=== PATIENT | male | born 1945 | race Caucasian/White ===

== ENCOUNTER 2024-02-20 22:32 | Observation (INO) | payer MEDICARE, OTHER, SELFPAY ==
[2024-02-20 18:35] VITALS: BP 169/76; BMI 31.6
--- NOTE | 2024-02-20 19:02 | ED.GENMED ---
History of Present Illness
General
Chief Complaint: Weakness
Source: patient and ambulance crew
Exam Limitations: none
Time Seen by Provider: 02/20/24 18:31
Nursing documentation reviewed up to this point in time: agreed with
History of Present Illness
History of Present Illness:
Pleasant 78-year-old male presents with weakness. He has a history of Parkinson's and reports becoming weak today. He was diagnosed with UTI recently and started on an antibiotic. He is unsure of the name. Patient has a history of diabetes,
Parkinson's, hypertension, hyperlipidemia. Denies fever, chills, nausea or vomiting. He does report acute on chronic lower leg paresthesias. He does have a history of lower leg edema and peripheral vascular disease.
Past History
Past History
ED Past Medical History: NIDDM, Other (glaucoma, Parkinson's disease, kidney stones) and Other (Osteoarthritis)
ED Past Surgical History: Other (skin graft)
Social History
Tobacco: Former smoker
Alcohol: Occasional (rare)
Drug: None
Personal:
Living: with family
Employment: Retired
Family History
Family History: Other (Noncontributory)
Review of Systems
Review of Systems
Allergies reviewed?: Yes
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
All Other Systems: ROS reviewed and negative except as documented in HPI and ROS
Constitutional: Reports fatigue
EENT: Reports no symptoms
Respiratory: Reports no symptoms
Cardiac: Reports no symptoms
ABD/GI: Reports no symptoms
: Reports no symptoms
Musculoskeletal: Reports no symptoms
Skin: Reports no symptoms
Neurological: Reports no symptoms
Endocrine: Reports no symptoms
Hematologic/Lymphatic: Reports no symptoms
Psychiatric: Reports anxiety
Phy Exam
General Physical Exam
General Presentation: well appearing and mild distress
General age: appears older than age
General Skin: dry
General Habitus: debilitated and elderly
General Mental: alert and anxious
General Hydration: appears well hydrated
ENT Exam
ENT Exam: EOMI, pharynx normal, neck supple and normocephalic
Eye Exam
Eye Exam: PERRL, cornea clear and conjunctiva normal
Cardiovascular Exam
Cardiovascular Exam: regular rate/rhythm
Pulmonary Exam
Pulmonary Exam: lungs clear, no respiratory distress, no rales, no crackles, no rhonchi, no stridor, no wheezing and no cough
Gastrointestinal Exam
Gastrointestinal Exam: normal bowel sounds, non tender, soft, no organomegaly, no pulsatile mass and non distended
Neurological Exam
Neurological Exam: alert, oriented x3, no motor deficits and speech normal
Musculoskeletal Exam
Musculoskeletal Exam: edema (Bilateral lower extremity edema) and neuro vasc intact
Skin Exam
Skin Exam: normal color, warm/dry, no rash and no petechia
Psychiatric Exam
Psychiatric Exam: normal mood/affect and labile
Course
Orders/Labs/Results
Orders:
Orders
02/20/24 18:57
Complete Blood Count/With Diff Urgent
Comprehensive Metabolic Panel Urgent
Lactate Level [Lactic Acid] Urgent
02/20/24 20:21
Urinalysis Reflex To Culture Urgent
Date Specimen was Collected: 02/20/24
Time Specimen was Collected: 20:17
02/20/24 22:04
Admit/Transfer Patient As Directed
Co-Sign Provider:
Level of Care: Observation services
Assign to:: Medical/Surgical
Physician / Group: Mae
Diagnosis: generalized weakness
02/20/24 22:07
Code Status As Directed
Resuscitation Status: Full Code
02/20/24 22:17
Chest X-ray Portable [CR Chest Portable - 1 View] Routine
Comment:
Reason For Exam: Ambulatory dysfunction
Reason Study Needs to be Portable: Other
If Reason is Other, explain: Ambulatory dysfunction
02/20/24 22:21
Orthostatic Vital Signs As Directed
Orthostatic VS Frequency: BID
Ot Eval And Treat Routine
Pt Eval And Treat Routine
Activity Level: Out of Bed-Early Mobility
Speech Therapy Eval & Treat Routine
02/21/24 06:00
Lactic Acid IN AM
Abnormal Lab Results
02/20/24 02/20/24
18:57 20:21
Absolute Lymphs (auto) 1.1 L 10^3/uL
(1.2-3.4)
Lymphocytes % 15.2 L %
(20.5-51.1)
BUN 31 H mg/dl
(9-20)
Glucose 142 H mg/dl
(70-99)
Lactic Acid 2.9 H mmol/L
(0.7-2.0)
Alkaline Phosphatase 129 H U/L
(38-126)
Urine Ketones Trace A
(Negative)
02/20/24 18:57
02/20/24 18:57
Vital Signs
Initial and Last Documented VS:
Initial Vital Signs
Temp Pulse Resp BP Pulse Ox
98.3 F 73 16 169/76 98
02/20/24 18:35 02/20/24 18:35 02/20/24 18:35 02/20/24 18:35 02/20/24 18:35
Last Documented Vital Signs
Temp Pulse Resp BP Pulse Ox
97.7 F 69 20 142/76 98
02/20/24 19:24 02/20/24 21:53 02/20/24 21:53 02/20/24 21:53 02/20/24 21:53
*Critical Care Note
Total Time (30-74mins, 75-104mins- exclusive of procedures): Not Applicable
Update Note
Update Note:
02/20/20242126 PM: Patient was able to urinate and tolerate 8 ounces of fluids. Lab work shows that he is slightly dehydrated but he is drinking adequately. Family wishes to take him home. Patient to be discharged
ED Attending Note
-
Portions of this chart may have been created with voice recognition software.� Occasional wrong word or��sound alike� substitutions may have occurred due to the inherent limitations of voice recognition software.
Discharge Plan
Departure
Patient Disposition: Admit
Date of Disposition: 02/20/24
Time of Disposition: 21:39
Admit to: Med/Surg
Presentation/result/management discussed w/ accepting MD/DO: Hospitalist
Condition: Good
Discharge Problem:
Weakness, Parkinson's disease, Dehydration
Interventions
Interventions:
*Risk Screen - Suicide Last Done: 02/20/24 19:24
*General Assessment Last Done: 02/20/24 19:24
*Neglect/Abuse Screening Last Done: 02/20/24 19:24
ED- Fall Risk Assessment Last Done: 02/20/24 19:24
*ED COVID-19 Vaccine History Last Done: 02/20/24 19:24
ED- Cardiac Assessment Last Done: 02/20/24 19:24
ED- Neurological Assessment Last Done: 02/20/24 19:24
ED- Pulmonary Assessment Last Done: 02/20/24 19:24
[2024-02-20 19:05] LABS: % Basophils 0.7 % (0-2); % Eosinophils 5.7 % (0-6); % Immature Granulocytes 0.3 % (0-0.5); % Lymphocytes 15.2 % (20.5-51.1); % Neutrophils 70.1 % (42.2-75.2); Absolute Basophils 0.1 10^3/uL (0-0.2); Absolute Eosinophils 0.4 10^3/uL (0-0.7); Absolute Lymphocytes 1.1 10^3/uL (1.2-3.4); Absolute Monocytes 0.6 10^3/uL (0.1-0.6); Absolute Neutrophils 5.2 10^3/uL (1.4-6.5); Hematocrit 41.8 % (39.0-52.0); Hemoglobin 14.3 g/dL (13.0-18.0); Mean Corp Hgb Conc. 34.2 g/dL (33.0-37.0); Mean Corpuscular Hgb 29.5 pg (27.0-31.0); Mean Corpuscular Volume 86.4 fL (80.0-94.0); Mean Platelet Volume 10.1 fL (7.4-10.4); Nucleated Red Blood Cells % 0 % (-); Platelet Count 157 10^3/uL (130-400); Red Blood Cell Count 4.84 10^6/uL (4.70-6.10); Red Cell Dist. Width 13.1 % (11.5-14.5); White Blood Cell Count 7.4 10^3/uL (4.8-10.8)
[2024-02-20 19:18] LABS: Lactic Acid 2.9 mmol/L (0.7-2.0)
[2024-02-20 19:21] LABS: ALT (SGPT) 11 U/L (0-50); AST (SGOT) 20 U/L (17-59); Albumin 4.4 g/dl (3.5-5.0); Alkaline Phosphatase 129 U/L (38-126); Blood Urea Nitrogen 31 mg/dl (9-20); Calcium 9.9 mg/dl (8.4-10.2); Carbon Dioxide 23 mmol/L (22-30); Chloride 107 mmol/L (98-107); Estimated Creatinine Clearance 71 ml/min; Glucose 142 mg/dl (70-99); Potassium 4.6 mmol/L (3.5-5.1); Sodium 140 mmol/L (135-145); Total Bilirubin 0.8 mg/dl (0.2-1.3); eGFR > 60.00
[2024-02-20 19:24] VITALS: BP 142/59
[2024-02-20 20:23] VITALS: BP 138/83
[2024-02-20 20:26] LABS: Urine Albumin Negative (Neg - Trace); Urine Bilirubin Negative (Negative); Urine Character Clear (Clear); Urine Color Yellow; Urine Glucose Negative (Negative); Urine Ketone Trace (Negative); Urine Leukocyte Negative (Negative); Urine Nitrite Negative (Negative); Urine Occult Blood Negative (Negative); Urine Specific Gravity 1.015 (<1.030); Urine Urobilinogen Negative (Neg - 1+)
[2024-02-20 21:53] VITALS: BP 142/76
--- NOTE | 2024-02-20 22:12 | HPS.HSE ---
Family Physician
-
Family Physician: Ham Sheldon
Chief Complaint
-
Generalized weakness
History of Present Illness
78-year-old male who accompanied by the and son at bedside with known history of Parkinson disease, diabetes, chronic lower extremity especially leg weakness and recent diagnosed with UTI and been treated with 12-day nitrofurantoin by primary
care still have a couple of pills left, brought to the hospital as family noticed in the last couple of days progressively getting more weaker and not eating and drinking especially not drinking much generally and worse last couple of days, he will
ambulate with a walker if not uses a wheelchair.
Denies any nausea or vomiting, admit poor appetite and no fever or chill or cough or congestion, no chest pain, no syncope or palpitation or any dizziness.
provided most of the information according to the he is barely drinks anything in general worse last couple of days.
No sick contacts or recent travel.
No diarrhea, moves his bowels according to the patient daily if not every other day.
Urinalysis in the ER showed trace ketones otherwise no evidence of infection, lactic acid is 2.9 BUN is 31, there is no leukocytosis or fever, he is able to provide most information but speaks in multiple voice and not in distress.
Medical History
Past Medical History
Past Medical History: Reports Other
Additional Past Medical History:
Past medical history archive reviewed:
Parkinson disease
Ambulatory dysfunction
Chronic lower extremity weakness and numbness mostly in the left
Hypertension
Social history: Lives at home with and family, no smoking or alcohol use, ambulates with a walker and wheelchair.
Family history: Reviewed and noncontributory
Past Surgical History: Reports Other
Social History
Unable to obtain full social history at this time due to: Other
Family History
Family History: Other
Allergies / Home Medications
Allergies reflects when Allergies were last updated in [employer].
Home Medications with original date entered in [employer]
Allergy/Medication List:
Allergies
Allergy/AdvReac Type Severity Reaction Status Date / Time
Penicillins Allergy Intermediate Rash Verified 06/25/22 06:51
' all antibiotics' Allergy Pharmacy Uncoded 05/24/23 11:23
to Review
Home Medications
metformin 500 mg tablet 500 mg PO DAILY diabetes 12/25/16
carbidopa ER 50 mg-levodopa 200 mg tablet,extended release 0.5 tab PO DAILY@1200 parkinsons disease 06/23/22
carbidopa ER 50 mg-levodopa 200 mg tablet,extended release 1 tab PO TID parkinsons disease 06/23/22
pramipexole 1 mg tablet 1 mg PO TID parkinsons disease 06/23/22
simvastatin 10 mg tablet 10 mg PO HS High Cholesterol 06/23/22
zonisamide 50 mg capsule 150 mg PO HS Neurological Condition 06/23/22
aspirin 81 mg tablet,delayed release 81 mg PO HS Blood Clot Prevention/Tx 05/24/23
enalapril maleate 10 mg tablet 5 mg PO HS Blood Pressure 05/24/23
cefdinir 300 mg capsule 300 mg PO BID #16 caps 05/28/23
Review of Systems
-
A 12 point ROS was completed and negative except as noted: Yes
Physical Exam
Vital Signs
Vital Signs
Temp Pulse Resp BP Pulse Ox
97.7 F 69 20 142/76 98
02/20/24 19:24 02/20/24 21:53 02/20/24 21:53 02/20/24 21:53 02/20/24 21:53
Physical exam:
General: Awake, alert and oriented x3, speaks in low tone of voice, not in distress and holds appropriate conversation.
HEENT: No active discharge, ecchymosis or bruising, dry lips, tongue and mucous membrane.
Eyes: No discharge or red conjunctiva, no nystagmus, pupils are reactive and equal
Neck:Supple, no JVD no bruit no goiter.
Respiratory: Normal AP contour and diameter, normal chest wall movement, normal respiratory effort, no respiratory distress,
Lungs: Good air entry bilaterally, no wheezing or rhonchi, no rales or crackles
Heart: S1, S2 regular, normal rate, no added sound. Mild to moderate bilateral lower extremities edema,
Gastrointestinal: Positive bowel sounds, soft, nontender, no guarding or rigidity or organomegaly
Musculoskeletal: , no chest wall abnormality or tenderness. All joints and extremities have good range of motion, no muscle tenderness or any joint swelling or tenderness.
Extremities: Skin demarcation bilateral lower extremities, no ulceration, good peripheral pulses, good range of motion
Skin: Warm and dry, no ulceration, normal color.
Neurological: Awake, alert and oriented x3, speaks low tone of voice, moves extremities well but slowly,, cranial nerve II-XII grossly intact, speech clear and comprehensive, good muscle tone, sensation intact in all extremities, motor in all
extremities. 4-5/5,
Psychiatric: Normal mood, normal thought and judgment, normal affect,
Physical Exam
General: Other
Laboratory Results
-
02/20/24 18:57
02/20/24 18:57
Laboratory Results
Lactic Acid 2.9 mmol/L (0.7-2.0) H 02/20/24 18:57
Total Bilirubin 0.8 mg/dl (0.2-1.3) 02/20/24 18:57
AST 20 U/L (17-59) 02/20/24 18:57
ALT 11 U/L (0-50) 02/20/24 18:57
Alkaline Phosphatase 129 U/L (38-126) H 02/20/24 18:57
Data Reviewed
-
Lab Data: Labs Reviewed by me, Discussed with Patient and Discussed with Family
Old Records: Reviewed
Impression/Plan
-
IMPRESSION:
78-year-old male with a long history of Parkinson disease, ambulatory dysfunction, diabetes, was treated with nitrofurantoin for 12-day for urinary tract infection, brought to the hospital for generalized weakness and worsening ambulation. Likely
related to dehydration and worsening Parkinson syndrome may be a possibility, other causes may need to be considered but doubted stroke, also there is lactic acidosis.
Generalized weakness
Worsening ambulation
Dehydration
Lactic acidosis, so far is no evidence of infection but may be related to metformin
Elevated BUN, likely related to dehydration
Known history of Parkinson disease
Diabetes mellitus
Hypertension
Chronic lower extremity weakness and numbness
Recent UTI, urinalysis showed no evidence of UTI,
PLAN:
Will start normal saline at 80 mill per hour and he looks dry and dehydrated and according to the patient and the family he barely drinks anything,
Fall aspiration precaution
Get orthostatic vital sign
PT OT and assess functional status
Neurology consult for further evaluation and recommendation
get a blood culture and chest x-ray for now I will hold off any antibiotic as there is no indication including holding nitrofurantoin and need to prefer to follow-up to have a couple more pills left and urinalysis showed no evidence of UTI
Recheck lactic acid level hold metformin
Glucoscan.
Home medication reviewed with , on the list simvastatin is not included we will hold it.
zonisamide decreased to 100 at the bedside.
All discussed with the patient and the family in detail expressed understanding
CODE STATUS full code
DVT prophylaxis Lovenox
[2024-02-20 23:21] VITALS: BP 144/66
[2024-02-21 00:27] VITALS: BP 163/76; BMI 28.6
[2024-02-21] MEDS: VASOTEC 5 MG PO ×2 (01:30→22:04)
[2024-02-21] MEDS: LOW STRENGTH ASPIRIN 81 MG PO (01:30)
[2024-02-21] MEDS: ZONEGRAN 100 MG PO ×2 (01:30→22:02)
[2024-02-21] MEDS: SINEMET CR 50/200 (EXTENDED RELEASE) 1 TABLET PO ×4 (01:31→21:57)
[2024-02-21 01:41] LABS: Glucose - Point of Care 184 mg/dl (70-99)
[2024-02-21] MEDS: MIRAPEX, GENERIC 1 MG PO ×4 (01:42→21:58)
[2024-02-21] MEDS: NSS 1000 IV ×2 (01:43→13:06)
[2024-02-21 07:35] VITALS: BP 150/86; BP 161/81; PULSE 68
[2024-02-21 07:38] LABS: Glucose - Point of Care 106 mg/dl (70-99)
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
[2024-02-21] MEDS: NOVOLOG FLEXPEN-MODERATE RESISTANCE SC (09:15)
--- NOTE | 2024-02-21 09:37 | PTOTSP ---
Dysphagia Evaluation
Patient presents with signs concerning for WFL-mild oral/pharyngeal dysphagia (likely related to Parkinson's disease) without signs of complications (chest x-ray without PNA). He also presents with dysarthria/dysphonia due to Parkinson's disease.
Outpatient evaluation warranted.
Recommend:
1. Regular, Thin Liquids
2. Medications - 1 at a time with single sips of water and/or whole in puree as needed
3. Strategies: upright to 90 degrees, slow rate, small sips/bites
4. Oral care 3x daily
5. No further dysphagia tx warranted. Consider outpatient voice/motor speech evaluation.
[2024-02-21 11:09] LABS: Lactic Acid 2.2 mmol/L (0.7-2.0)
[2024-02-21 11:25] VITALS: BP 155/78; BP 170/82; BP 176/104; PULSE 65; O2SAT 97
[2024-02-21 11:27] VITALS: BP 155/78; BP 170/82; BP 176/104; PULSE 67; PULSE 68; O2SAT 98
[2024-02-21 11:41] LABS: Blood Urea Nitrogen 21 mg/dl (9-20); Calcium 9.5 mg/dl (8.4-10.2); Carbon Dioxide 21 mmol/L (22-30); Chloride 109 mmol/L (98-107); Estimated Creatinine Clearance 69 ml/min; Glucose 170 mg/dl (70-99); Magnesium 2.1 mg/dl (1.6-2.3); Potassium 4.6 mmol/L (3.5-5.1); Sodium 139 mmol/L (135-145); eGFR > 60.00
[2024-02-21 11:52] LABS: Glucose - Point of Care 150 mg/dl (70-99)
[2024-02-21 12:06] LABS: TSH 0.62 uIU/ml (0.47-4.68)
[2024-02-21 12:25] LABS: Vitamin B12 430 pg/ml (239-931)
[2024-02-21 12:26] LABS: % Basophils 0.8 % (0-2); % Eosinophils 5.6 % (0-6); % Immature Granulocytes 0.3 % (0-0.5); % Lymphocytes 12.9 % (20.5-51.1); % Monocytes 7.5 % (1.7-9.3); % Neutrophils 72.9 % (42.2-75.2); Absolute Basophils 0.1 10^3/uL (0-0.2); Absolute Eosinophils 0.4 10^3/uL (0-0.7); Absolute Lymphocytes 0.9 10^3/uL (1.2-3.4); Absolute Monocytes 0.5 10^3/uL (0.1-0.6); Absolute Neutrophils 5.2 10^3/uL (1.4-6.5); Hematocrit 38.7 % (39.0-52.0); Hemoglobin 13.5 g/dL (13.0-18.0); Mean Corp Hgb Conc. 34.9 g/dL (33.0-37.0); Mean Corpuscular Hgb 30.5 pg (27.0-31.0); Mean Corpuscular Volume 87.6 fL (80.0-94.0); Mean Platelet Volume 10.9 fL (7.4-10.4); Nucleated Red Blood Cells % 0 % (-); Platelet Count 145 10^3/uL (130-400); Red Blood Cell Count 4.42 10^6/uL (4.70-6.10); Red Cell Dist. Width 13.2 % (11.5-14.5); White Blood Cell Count 7.1 10^3/uL (4.8-10.8)
[2024-02-21] MEDS: SINEMET CR 50/200 (EXTENDED RELEASE) 0.5 TABLET PO (13:05)
[2024-02-21] MEDS: NOVOLOG FLEXPEN-MODERATE RESISTANCE 1 UNITS SC ×2 (13:07→18:11)
[2024-02-21 13:51] LABS: Glycohemoglobin (HgbA1c) 6.5 % (4.0-5.6)
--- NOTE | 2024-02-21 14:35 | W.PN.HOSP.TC ---
Today's Communication/Plan
-
Diabetes DIRECTOR OF TEACHING AND LEARNING consulted
Begin discharge planning to SNF
Assessment / Plan
Assessment / Plan
NAD, resting comfortably in bed, soft spoken
Scleral anicteric
Moist mucous membranes
No JVD
CTA bilateral
Normal S1-S2 no murmurs
Soft nontender nondistended bowel sounds active
No peripheral pitting edema
AAOx3
Parkinson's continue Sinemet and pramipexole. Evaluated by neurology did not recommend dose adjustment. Avoid antipsychotics.
-Recommend dedicated exercise program such as rock [place] boxing
-Evaluated by physical therapy recommended SNF. Family agreeable.
Lactic acid remains high at 2.2. Likely related to metformin use. Will need to hold this indefinitely.
-Without foci of infectious process noted
-Without evidence of acute allergic reaction
-Without history of alcohol use
Diabetes continue Accu-Cheks sliding scale goal blood glucose 140-180. Carb controlled diet. On discharge will likely need to be discharged with a sliding scale rather than metformin.
-Will have diabetes DIRECTOR OF TEACHING AND LEARNING evaluate
Anticipated Discharge: Within 24 hours
Subjective/Interval History
-
Date of Service: February 21, 2024
Seen and examined. No new complaints. No acute overnight events.
Objective Data
-
Labs:
Laboratory Results
02/21/24
10:28
WBC 7.1
Hgb 13.5
Hct 38.7 L
Plt Count 145
Sodium 139
Potassium 4.6
Chloride 109 H
Carbon Dioxide 21 L
BUN 21 H
Creatinine 0.8
Glucose 170 H
Calcium 9.5
Vital Signs:
Vital Signs
Temp Pulse Resp BP Pulse Ox
97.9 F 68 18 161/81 95
02/21/24 07:35 02/21/24 07:35 02/21/24 07:35 02/21/24 07:35 02/21/24 09:09
I&O
02/20/24 02/21/24 02/22/24
06:59 06:59 06:59
Intake Total 240 / 240
Output Total 100 / 100
Balance 140 / 140
[2024-02-21 15:22] VITALS: BP 136/64
--- NOTE | 2024-02-21 16:56 | PTCARENOTE ---
Pt AAO x3, speech soft. QUINTANILLA randomly; has involuntary movements of arms/legs at times. Assists with positioning. VSS. On room air- pulseox 94%, no SOB noted. Abd large, soft, charlene PO well, no dysphagia noted. Incont large amts urine. Resting in
bed at present, no c/o. Will continue to monitor.
[2024-02-21 16:57] LABS: Glucose - Point of Care 152 mg/dl (70-99)
[2024-02-21] MEDS: LOVENOX 40 MG SC (18:13)
[2024-02-21 20:07] LABS: Hepatitis C Antibody Negative (Negative)
[2024-02-21 21:11] LABS: Glucose - Point of Care 138 mg/dl (70-99)
[2024-02-21] MEDS: ASPIR LOW (ENTERIC COATED) 81 MG PO (21:57)
[2024-02-21 23:37] VITALS: BP 141/69
[2024-02-22] MEDS: NSS 1000 IV ×2 (01:33→14:14)
[2024-02-22 06:00] VITALS: BMI 28.6
[2024-02-22 07:30] VITALS: BP 158/77
[2024-02-22 07:42] LABS: Glucose - Point of Care 112 mg/dl (70-99)
--- NOTE | 2024-02-22 07:59 | PN.DE.MGMTRT ---
Insulin Management
- -
02/22/2024 Diabetes Management Consult
Patient admitted 02/19 due to weakness, dehydration, elevated lactic acid. PMH Parkinsons, recent UTI, HTN, diabetes, HLD. Prior to admission was taking 500 mg metformin daily. A1C 6.5 on admission, cr .8, eGFR > 60.
Patient is awake alert and oriented oob in chair. Son at bedside.
Patient has been on moderate corrective insulin requiring 1 unit with lunch and 1 unit with dinner for glucose 150. Fasting glucose this AM 112. Appetite is documented as excellent 100% of meals. Will make no change to corrective insulin only at
this time.
Would not restart metformin as A1C is 6.5%.
Diabetes History
- -
Type of Diabetes: 2
Pre-Admission Diabetes Regimen
02/21/24
10:28
Creatinine 0.8
Lab Results
Hemoglobin A1c 6.5 % (4.0-5.6) H 02/21/24 10:28
Insulin Pump Settings
IP Diabetes Regimen
02/21/24 02/21/24 02/21/24
10:28 11:50 16:56
Glucose 170 H
POC Glucose 150 H 152 H
02/21/24 02/22/24
21:10 07:40
Glucose
POC Glucose 138 H 112 H
Meal type: Dinner
Meal type: Lunch
Meal type: Breakfast
Amount consumed: 100%
Amount consumed: 100%
Amount consumed: 100%
Patient Education
--- NOTE | 2024-02-22 09:12 | W.PN.HOSP.TC ---
Today's Communication/Plan
-
begin dc planning to snf
family aware of plan as I provided them with an update yesterday over the phone
- they are agreeable to snf
- they were happy that neuro did not make any chnages to parkinsons agents.
Assessment / Plan
Assessment / Plan
NAD, resting comfortably in bed, soft spoken
Scleral anicteric
Moist mucous membranes
No JVD
CTA bilateral
Normal S1-S2 no murmurs
Soft nontender nondistended bowel sounds active
No peripheral pitting edema
AAOx3
Parkinson's continue Sinemet and pramipexole. Evaluated by neurology did not recommend dose adjustment. Avoid antipsychotics.
-Recommend dedicated exercise program such as rock [place] boxing
-Evaluated by physical therapy recommended SNF. Family agreeable.
Lactic acid remains high at 2.2. Likely related to metformin use. Will need to hold this indefinitely.
-Without foci of infectious process noted
-Without evidence of acute allergic reaction
-Without history of alcohol use
Diabetes continue Accu-Cheks sliding scale goal blood glucose 140-180. Carb controlled diet. On discharge will likely need to be discharged with a sliding scale rather than metformin.
-Will have diabetes POLICE CAPTAIN evaluate
Anticipated Discharge: Within 24 hours
Subjective/Interval History
-
Date of Service: February 22, 2024
seen and examined. no new complaints no acute overnight events
at bedside
updated and notified her that he is ready for dc to snf
Objective Data
-
Vital Signs:
Vital Signs
Temp Pulse Resp BP Pulse Ox
98.0 F 60 17 158/77 95
02/22/24 07:30 02/22/24 07:30 02/22/24 07:30 02/22/24 07:30 02/22/24 07:30
I&O
02/21/24 02/22/2402/22/24
06:59 06:59 06:59
Intake Total 240 / 240 2099 / 2099
Output Total 100 / 100 175 / 175
Balance 140 / 140 1924 / 1924
[2024-02-22] MEDS: NOVOLOG FLEXPEN-MODERATE RESISTANCE SC ×3 (09:13→16:53)
[2024-02-22] MEDS: MIRAPEX, GENERIC 1 MG PO ×2 (09:14→21:07)
[2024-02-22] MEDS: SINEMET CR 50/200 (EXTENDED RELEASE) 1 TABLET PO ×3 (09:14→21:07)
[2024-02-22 11:19] LABS: Glucose - Point of Care 143 mg/dl (70-99)
[2024-02-22] MEDS: SINEMET CR 50/200 (EXTENDED RELEASE) 0.5 TABLET PO (12:06)
[2024-02-22 15:19] VITALS: BP 140/62
[2024-02-22 16:06] VITALS: BP 160/79; PULSE 60; O2SAT 97
[2024-02-22 16:14] LABS: Glucose - Point of Care 115 mg/dl (70-99)
--- NOTE | 2024-02-22 16:33 | CM ---
CM met with Sophie, his , and son at bedside to discuss discharge to SNF. [facility] has a bed available and participates in the [employer] Waiver, so SNF will be covered. Pt and family agreeable to this plan.
SNF bed available tomorrow for transfer in the early afternoon.
CM to follow to facilitate transfer to [facility] when medically cleared. updated on plan.
Plan: Short term placement at [facility]
PCP: Ham Sheldon
Pharmacy: [facility] in [place]
[2024-02-22] MEDS: MIRAPEX, GENERIC PO (16:53)
[2024-02-22] MEDS: LOVENOX 40 MG SC (17:42)
[2024-02-22] MEDS: VASOTEC 5 MG PO (21:07)
[2024-02-22] MEDS: ASPIR LOW (ENTERIC COATED) 81 MG PO (21:08)
[2024-02-22] MEDS: ZONEGRAN 100 MG PO (21:08)
[2024-02-22 21:19] LABS: Glucose - Point of Care 143 mg/dl (70-99)
[2024-02-22 23:53] VITALS: BP 143/79
--- NOTE | 2024-02-23 03:02 | DOWNTIME ---
There was a [employer] Client Mechanical Engineering Technologist Downtime on 02/23/2024 from 0100 to 02/23/2024 at 0255. Downtime documentation of patient's care, including medication administrations, has been reconciled in the electronic record per guidelines. Refer to the
patient's paper chart under the miscellaneous tab to see printed paper medication records and downtime forms.
[2024-02-23] MEDS: NSS 1000 IV (05:33)
[2024-02-23 07:24] LABS: Glucose - Point of Care 115 mg/dl (70-99)
[2024-02-23 07:40] VITALS: BP 155/80
--- NOTE | 2024-02-23 08:09 | PN.DE.MGMTRT ---
Insulin Management
- -
02/23/2024 Diabetes Management Consult Follow up
Patient admitted 02/19 due to weakness, dehydration, elevated lactic acid. PMH Parkinsons, recent UTI, HTN, diabetes, HLD. Prior to admission was taking 500 mg metformin daily. A1C 6.5 on admission, cr .8, eGFR > 60.
Patient is awake alert and oriented oob in chair.
02/21 glucose range 112 to 143, requiring no corrective insulin
Fasting glucose this AM 115. Appetite is documented as excellent 100% of meals. Will make no change to corrective insulin only at this time.
Would not restart metformin as A1C is 6.5%, at patient age and listed comorbidities A1C target can be liberalized, would not start additional agent.
Diabetes History
- -
Type of Diabetes: 2
Pre-Admission Diabetes Regimen
Lab Results
Hemoglobin A1c 6.5 % (4.0-5.6) H 02/21/24 10:28
Insulin Pump Settings
IP Diabetes Regimen
02/22/24 02/22/24 02/22/24
11:17 16:13 21:17
POC Glucose 143 H 115 H 143 H
02/23/24
07:23
POC Glucose 115 H
Meal type: Lunch
Meal type: Breakfast
Amount consumed: 100%
Amount consumed: 100%
Patient Education
--- NOTE | 2024-02-23 08:42 | W.PN.HOSP.TC ---
Today's Communication/Plan
-
dc to [facility] when bed avaliable
dc order placed
Assessment / Plan
Assessment / Plan
NAD, resting comfortably in bed, soft spoken
Scleral anicteric
Moist mucous membranes
No JVD
CTA bilateral
Normal S1-S2 no murmurs
Soft nontender nondistended bowel sounds active
No peripheral pitting edema
AAOx3
Parkinson's continue Sinemet and pramipexole. Evaluated by neurology did not recommend dose adjustment. Avoid antipsychotics.
-Recommend dedicated exercise program such as [employer] boxing
-Evaluated by physical therapy recommended SNF. Family agreeable.
Lactic acid remains high at 2.2. Likely related to metformin use. Will need to hold this indefinitely.
-Without foci of infectious process noted
-Without evidence of acute allergic reaction
-Without history of alcohol use
Diabetes continue Accu-Cheks sliding scale goal blood glucose 140-180. Carb controlled diet. On discharge will likely need to be discharged with a sliding scale rather than metformin.
-Will have diabetes AUTO CLUTCH SPECIALIST evaluate
Anticipated Discharge: Today
Subjective/Interval History
-
Date of Service: February 23, 2024
Objective Data
-
Vital Signs:
Vital Signs
Temp Pulse Resp BP Pulse Ox
97.8 F 58 20 155/80 95
02/23/24 07:40 02/23/24 07:40 02/23/24 07:40 02/23/24 07:40 02/23/24 07:40
I&O
02/22/24 02/23/24 02/24/24
06:59 06:59 06:59
Intake Total 2099 / 2099
Output Total 175 / 175 550 / 550
Balance 1925 / 1924 1550 / 1550
--- NOTE | 2024-02-23 08:42 | W.DCSUMMARY ---
Discharge Summary
Discharge Data
Date of Admission: 02/20/24
Date of Discharge: 02/23/24
-
Pending Results: No
Hospital Course
78 male with Parkinson disease, diabetes, chronic lower extremity weakness presented with progressively worsening weakness, decreased p.o. intake and unable to ambulate with walker. Concerned that Parkinson's was playing a role therefore neurology
was consulted. Have recommended no changes in his current medications with Sinemet and pramipexole. Did recommend to avoid antipsychotics. Additionally recommended to and specific exercises like rock steady boxing program which is specifically
developed for Parkinson's patients. Was evaluated by physical therapy and Occupational Therapy recommended skilled rehab.
Additionally, it should be noted that metformin has been definitely held as he was found to have a lactic acidosis that was not explained by anything else apart from metformin use. Will be discharged to rehab facility with sliding scale insulin.
Need outpatient PCP neurology and endocrinology follow-up
Discharge Plan
-
Patient Disposition: Care Home/SNF
Discharge Diagnosis/Procedures: Parkinson disease, diabetes, chronic lower extremity especially leg weakness
Ambulatory dysunciton
Condition: Fair
Diet: As tolerated
Activity: As tolerated
Driving Restrictions: No driving
Activity Restrictions/Additional Instructions:
Presented with progressively worsening weakness, decreased p.o. intake and unable to ambulate with walker. Concerned that Parkinson's was playing a role therefore neurology was consulted. Have recommended no changes in his current medications with
Sinemet and pramipexole. Did recommend to avoid antipsychotics. Additionally recommended to and specific exercises like rock steady boxing program which is specifically developed for Parkinson's patients. Was evaluated by physical therapy and
Occupational Therapy recommended skilled rehab.
Additionally, it should be noted that metformin has been definitely held as he was found to have a lactic acidosis that was not explained by anything else apart from metformin use. Will be discharged to rehab facility with sliding scale insulin.
Need outpatient PCP neurology and endocrinology follow-up
Instructions: Low blood sugar in people with diabetes, Generalized Weakness (DC)
Referrals:
Milton Frost MD [Active] -
Ham Sheldon MD [Family Provider] -
Additional Discharge Medication Instructions: Insulin short acting
Pre-Meal Bedside Glucose
Additional aspart (Novolog) Insulin
70-149 mg/dL
No insulin
150-199 mg/dL
1 unit
200-249 mg/dL
3 units
250-299 mg/dL
5 units
300-349 mg/dL
7 units
350-399 mg/dL
9 units
400-499 mg/dL Stat Lab
11 units
500 mg/dL or greater Stat Lab
Call provider for one time order
Prescriptions:
New
zonisamide 100 mg Capsule
100 mg PO HS 30 Days Qty: 30 0RF
Continued
pramipexole 1 mg Tablet
1 mg PO TID
carbidopa-levodopa 50-200 mg Tablet Extended Release
1 tab PO TID
Rx Instructions:
0800 1600 2130
carbidopa-levodopa 50-200 mg Tablet Extended Release
0.5 tab PO DAILY@1200
simvastatin 10 mg Tablet
10 mg PO HS
aspirin 81 MG tablet,delayed release (DR/EC)
81 mg PO HS
enalapril maleate 10 mg Tablet
5 mg PO HS
Discontinued
metformin 500 MG tablet
500 mg PO DAILY
zonisamide 50 mg Capsule
150 mg PO HS
cefdinir 300 mg capsule
300 mg PO BID Qty: 16 0RF
nitrofurantoin
Discharge Orders:
Discharge Patient (As Directed); Ordered 02/23/24
Ordered By: Thompson Marti
Discharge Date and Time
Print Language: CROATIAN
[2024-02-23] MEDS: SINEMET CR 50/200 (EXTENDED RELEASE) 1 TABLET PO (09:37)
[2024-02-23] MEDS: NOVOLOG FLEXPEN-MODERATE RESISTANCE SC (09:37)
[2024-02-23] MEDS: MIRAPEX, GENERIC 1 MG PO (09:37)
--- NOTE | 2024-02-23 10:52 | CM ---
Sophie is ready for discharge today to [facility]. CM met with Sophie and his to confirm plans. spoke to me privately about concern for care, as she had a friend who had a poor experience 8 years ago, so was considering taking him home vs.
paying privately for another facility. Support provided, discussed Medicare Star Rating for [facility] which is 5 stars, encouraged to visit the facility if she had concerns, however she felt it was probably not necessary.
W/C van transport arranged for 2-2:30 pecan picker and provided with phone number to call to provide payment information for w/c van. [facility] aware of transfer plans.
Plan: Discharge to [facility] today between 2/2:30pm via w/c van transport.
Report: [phone]
--- NOTE | 2024-02-23 11:28 | PTCARENOTE ---
Patient arranged for transport at 1430 to [facility]. Family and patient aware. IV removed. Awaiting call back from [facility] to give report.
[2024-02-23 11:36] LABS: Glucose - Point of Care 160 mg/dl (70-99)
[2024-02-23] MEDS: NOVOLOG FLEXPEN-MODERATE RESISTANCE 1 UNITS SC (11:43)
[2024-02-23 11:57] VITALS: BP 149/81
[2024-02-23] MEDS: SINEMET CR 50/200 (EXTENDED RELEASE) 0.5 TABLET PO (13:03)
--- NOTE | 2024-02-23 13:45 | PTCARENOTE ---
report called to RN at [facility]. Patient pending shrimp picker via ambulance.
== END 2024-02-23 15:27 ==
LOC: 4 EAST ACU 22:32
PROVIDERS: ADMITTING PHYSICIAN Internal Medicine; ATTENDING PHYSICIAN Hospitalist; EMERGENCY PHYSICIAN Student in an Organized Health Care Education/Training Program; FAMILY PHYSICIAN Internal Medicine; OTHER PHYSICIAN Student in an Organized Health Care Education/Training Program
DX: R53.1 Weakness (principal); G20.A1 Parkinson's disease without dyskinesia, without mention of fluctuations; I10 Essential (primary) hypertension; H40.9 Unspecified glaucoma; E11.51 Type 2 diabetes mellitus with diabetic peripheral angiopathy without gangrene; R26.2 Difficulty in walking, not elsewhere classified; E87.20 Acidosis, unspecified; E11.40 Type 2 diabetes mellitus with diabetic neuropathy, unspecified; E86.0 Dehydration; E78.5 Hyperlipidemia, unspecified; M19.90 Unspecified osteoarthritis, unspecified site; Z87.442 Personal history of urinary calculi; Z87.891 Personal history of nicotine dependence; Z87.440 Personal history of urinary (tract) infections; Z88.1 Allergy status to other antibiotic agents; Z88.0 Allergy status to penicillin; Z79.84 Long term (current) use of oral hypoglycemic drugs; Z79.82 Long term (current) use of aspirin
CPT/HCPCS: 71045; 80048; 80053; 81003; 82607; 82962; 83036; 83605; 83735; 84443; 85025; 86803; 87040; 92610; 97116; 97163; 97167; 97530; 99285; G0378